=== PATIENT | female | born 1990 | race Caucasian/White ===

== ENCOUNTER 2016-09-07 09:00 | Emergency (ER) | payer OTHER, SELFPAY | END 2016-09-07 09:35 | disposition home or self-care (01) | LOC: BURERS 09:00 | DX: M25.522 Pain in left elbow (principal); M25.521 Pain in right elbow; M25.572 Pain in left ankle and joints of left foot; M25.571 Pain in right ankle and joints of right foot | CPT/HCPCS: 99282 ==

== ENCOUNTER 2017-09-10 04:24 | Emergency (ER) | payer OTHER, SELFPAY ==
[2017-09-10 04:47] LABS: Bilirubin Small (Negative); Blood, Urine Negative (Negative); Clarity Slightly Cloudy (Clear); Glucose, Urine (Dipstick) Negative (Negative); Leukocyte Negative (Negative); Nitrite Negative (Negative); Protein, Urine (Dipstick) 100 mg/dL (Neg-Trace); pH, Urine 5.5 (5.0-9.0)
[2017-09-10 04:52] LABS: Bacteria/HPF 2+ HPF (None Seen); RBC/HPF 0-3 HPF (0-3)
[2017-09-10 04:54] LABS: Pregu Control Background? CLEAR/WHITE (CLR/WHITE); Pregu Control Bar Appear? YES (CONTROL BAR)
[2017-09-10 04:57] LABS: Pregnancy Test - Urine (BHCG) POSITIVE (Negative)
[2017-09-10] MEDS ORDERED: Ondansetron HCl/PF 4 MG/2 ML Vial ONE (05:05)
[2017-09-10] MEDS ORDERED: Morphine 4 MG/ML Carpuject ONE ×2 (05:05→05:57)
[2017-09-10 05:11] LABS: #Basophils 0.1 thou/uL (0.0-0.2); #Eosinphils 0.2 thou/uL (0.0-0.7); #Lymphocytes 1.6 thou/uL (1.20-3.40); #Monocytes 0.6 thou/uL (0.11-0.59); #Neutrophils 6.3 thou/uL (1.40-6.50); %Basophils 0.8 % (0.0-1.0); %Eosinophils 2.5 % (0.0-10.0); %Lymphocytes 17.8 % (21.0-51.0); %Monocytes 7.3 % (0.0-10.0); %Neutrophils 71.7 % (42.0-75.0); Hemoglobin 13.4 g/dL (12.0-16.0); Mean Corpuscular Hemoglobin 31.6 pg (27.0-31.0); Mean Corpuscular Volume 87.8 fl (81.0-99.0); Mean Platelet Volume 9.3 fL (7.4-10.4); Platelet Count 222 thou/uL (130-400); RBC Distribution Width 10.6 % (11.5-14.5); Red Blood Cell (RBC) Count 4.25 mill/uL (4.20-5.40); White Blood Cell (WBC) Count 8.7 thou/uL (4.8-10.8)
[2017-09-10 05:21] LABS: ALT (SGPT) 11 U/L (8-55); AST (SGOT) 15 U/L (5-34); Albumin 4.5 g/dL (3.5-5.0); Alkaline Phosphatase 104 U/L (40-150); Anion Gap 13 mmol/L (10-20); BUN (Urea Nitrogen) 7 mg/dL (7.0-18.7); Bilirubin, Total 0.5 mg/dL (0.2-1.2); Calc. Creatinine Clearance 0 mL/min (70-130); Calcium 9.3 mg/dL (7.8-10.44); Carbon Dioxide 23 mmol/L (22-29); Chloride 105 mmol/L (98-107); Estimated GFR-MDRD Greater than 90; Globulin 2.8 g/dL (2.4-3.5); Glucose 104 mg/dL (70-105); Lipase 15 U/L (8-78); Potassium 3.5 mmol/L (3.5-5.1); Protein, Total 7.3 g/dL (6.0-8.3); Sodium 137 mmol/L (136-145)
[2017-09-12 01:15] LABS: Chlamydia by PCR Not Detected (NotDetected); GC by PCR Not Detected (NotDetected)
== END 2017-09-10 06:10 | disposition short-term general hospital (02) ==
LOC: BURERS 04:24
DX: O99.89 Other specified diseases and conditions complicating pregnancy, childbirth and the puerperium (principal); R10.84 Generalized abdominal pain; O99.331 Smoking (tobacco) complicating pregnancy, first trimester
CPT/HCPCS: 80053; 81003; 81015; 81025; 83690; 84702; 85025; 86900; 86901; 87480; 87491; 87510; 87591; 87660; 96361; 96374; 96375; 96376; J2270; J2405

== ENCOUNTER 2017-09-12 07:46 | Emergency (ER) | payer OTHER | END 2017-09-12 09:16 | disposition home or self-care (01) | LOC: BURERS 07:46 | DX: O99.89 Other specified diseases and conditions complicating pregnancy, childbirth and the puerperium (principal); R10.9 Unspecified abdominal pain; O99.331 Smoking (tobacco) complicating pregnancy, first trimester; F17.210 Nicotine dependence, cigarettes, uncomplicated; Z3A.01 Less than 8 weeks gestation of pregnancy | CPT/HCPCS: 36415; 84702; 99284 ==

== ENCOUNTER → 2017-12-18 | Emergency (ER) | payer OTHER ==
[~2017-12-18] MED LIST: Promethazine HCl 25 MG/ML VIAL ONE
[2017-12-18 15:34] LABS: #Eosinphils 0.1 thou/uL (0.0-0.7); #Lymphocytes 0.5 thou/uL (1.20-3.40); #Monocytes 0.5 thou/uL (0.11-0.59); #Neutrophils 12.4 thou/uL (1.40-6.50); %Basophils 0.3 % (0.0-1.0); %Eosinophils 0.4 % (0.0-10.0); %Lymphocytes 3.6 % (21.0-51.0); %Monocytes 3.6 % (0.0-10.0); Mean Corpuscular HGB CONC 36.5 g/dL (32.0-36.0); Mean Corpuscular Hemoglobin 31.2 pg (27.0-31.0); Mean Corpuscular Volume 85.4 fl (81.0-99.0); Platelet Count 232 thou/uL (130-400); Red Blood Cell (RBC) Count 4.17 mill/uL (4.20-5.40); White Blood Cell (WBC) Count 13.4 thou/uL (4.8-10.8)
[2017-12-18 15:39] LABS: ALT (SGPT) 12 U/L (8-55); AST (SGOT) 13 U/L (5-34); Albumin 4.2 g/dL (3.5-5.0); Alkaline Phosphatase 101 U/L (40-150); Anion Gap 17 mmol/L (10-20); BUN (Urea Nitrogen) 7 mg/dL (7.0-18.7); Bilirubin, Total 0.5 mg/dL (0.2-1.2); Calc. Creatinine Clearance 0 mL/min (70-130); Calcium 9.4 mg/dL (7.8-10.44); Carbon Dioxide 18 mmol/L (22-29); Chloride 109 mmol/L (98-107); Estimated GFR-MDRD Greater than 90; Globulin 3.2 g/dL (2.4-3.5); Glucose 97 mg/dL (70-105); Lipase 13 U/L (8-78); Potassium 3.8 mmol/L (3.5-5.1); Protein, Total 7.4 g/dL (6.0-8.3); Sodium 140 mmol/L (136-145)
[2017-12-18 16:27] LABS: Clarity Cloudy (Clear); Leukocyte Negative (Negative); Nitrite Negative (Negative); Protein, Urine (Dipstick) 100 mg/dL (Neg-Trace); Specific Gravity, Urine 1.028 (1.005-1.030); pH, Urine 5.5 (5.0-9.0)
[2017-12-18 16:28] LABS: Bilirubin Moderate (Negative); Blood, Urine Negative (Negative); Glucose, Urine (Dipstick) Negative (Negative); Urobilinogen 0.2 mg/dL (0.2-1.0)
[2017-12-18 16:31] LABS: Bacteria/HPF 4+ HPF (None Seen); RBC/HPF 0-3 HPF (0-3); Squamous Epithelial 0-3 HPF (0-3)
== END ==
LOC: BURERS 14:57
DX: O23.42 Unspecified infection of urinary tract in pregnancy, second trimester (principal); O21.9 Vomiting of pregnancy, unspecified; O99.332 Smoking (tobacco) complicating pregnancy, second trimester; F17.210 Nicotine dependence, cigarettes, uncomplicated; Z3A.18 18 weeks gestation of pregnancy
CPT/HCPCS: 80053; 81003; 81015; 83690; 85025; 87086; 96365; J2550

== ENCOUNTER 2025-03-25 20:29 | Emergency (ER) | payer OTHER ==
[2025-03-25] MEDS ORDERED: Sulfameth/Trimethoprim DS 800-160mg TAB ONE (21:32)
== END 2025-03-25 21:36 | disposition home or self-care (01) ==
LOC: BURERS 20:29
DX: L02.214 Cutaneous abscess of groin (principal); F17.210 Nicotine dependence, cigarettes, uncomplicated
CPT/HCPCS: 10060